=== PATIENT | female | born 1970 | race Caucasian/White ===

== ENCOUNTER 2019-04-16 13:28 | Outpatient (CLI) | payer OTHER, SELFPAY ==
--- NOTE | 2019-04-16 13:40 | XR_ITS ---
WS: [id number] Chest 2 views, 04/16/2019 Clinical Data: CHRONIC COUGH Comparison: None. Findings: No nodules, masses or effusions are seen. The heart is normal. The pulmonary vascularity is not increased. No pneumonia or pneumothorax is seen. XR/XR chest 2V* [id number] Impression: Negative chest.
== END 2019-04-16 13:29 | disposition home or self-care (01) ==
LOC: WPI 13:36
PROVIDERS: Family Provider Family Medicine; PCP Family Medicine; Referring Provider Family Medicine; Visit Provider Nurse Practitioner
DX: R05 Cough (principal)
CPT/HCPCS: 71046